=== PATIENT | male | born 1955 | race Caucasian/White ===

== ENCOUNTER 2023-05-27 06:21 | Observation (INO) ==
--- NOTE | 2023-05-17 10:49 | Anesthesiology Consultation ---
Date of Service May 17, 2023 Assessment & Plan (1) Encounter for pre-operative examination: Plan - will request most recent cardiology office notes from Dr. Ivory in addition to any available stress testing or carotid imaging from the past 6 years. - Per petrophysical engineer on 05/17/2023: No known infectious disease contacts, current infectious disease symptoms in past 10 days or COVID positive test result in the past 90 days. Chart Review Chart Review: Pending: Refer to Additional Notes / Consult section and Patient NOT seen in Pre Admission Testing History Surgery Operation Date: 05/27/23 08:15 Proposed Procedures p Robotic Assisted Laparoscopic Radical Retropubic Prostatectomy, Possible Open, Possible Pelvic Lymph Node Dissection - Vernon Soliz, Height/Weight Height: 5 ft 6 in Weight: 99.79 kg Allergies Allergy/AdvReac Type Severity Reaction Status Date / Time No Known Allergies Allergy Verified 05/17/23 08:32 Medications Home Medications Medication Instructions Recorded Confirmed Last Taken amlodipine 5 mg tablet 7.5 mg PO QAM 11/02/22 05/17/23 Unknown aspirin 81 mg tablet,delayed 81 mg PO QAM 11/02/22 05/17/23 Unknown release (Adult Aspirin Regimen) atorvastatin 80 mg tablet 80 mg PO HS 11/02/22 05/17/23 Unknown metoprolol tartrate 25 mg tablet 25 mg PO BID 11/02/22 05/17/23 Unknown Past Medical History Medical History (Updated 05/17/23 @ 10:48 by Azra Hernandez PA-C) CAD (coronary artery disease) s/p 2 stents 01/2022 Gout Heart attack 01/2022--had heart cath with 2 stents placed--was on plavix, taken off January 2023, continues with daily baby aspirin--follows with Dr. Ivory Heart failure EF 40% Hypertension Prostate cancer (02/08/23) diagnosed 01/2023--no treatment yet, scheduled for prostatectomy Past Family History Family History Mother Hypertension Other No family history of adverse response to anesthesia Past Surgical History Surgical History History of coronary artery stent placement 01/2022--@ [facility]--2 stents placed History of tooth extraction all teeth removed Social History Smoking Status: Never smoker Do You Dip or Chew Tobacco: No Hx Alcohol Use: Yes ("on the weekends") Alcohol type: beer alcohol intake frequency: a few times a week Hx Substance Use: No substance use type: does not use Testing Laboratory Results 05/14/2023 WBC: 7.2 H/H: 15/45 PLATELETS: 297 SODIUM: 139 POTASSIUM: 4.1 CHLORIDE: 109 CO2: 26 BUN: 19 CREATININE: 0.9 GLUCOSE: 107 Urine culture: no growth at 48 hours. Electrocardiogram Date: 05/14/23 Sinus bradycardia with 1st degree AV block, rate 58 bpm Minimal voltage criteria for LVH, consider normal variant Inferior PR, probably old with posterior extension Chest X-Ray Date: 05/14/23 No acute cardiopulmonary abnormality Echocardiogram Date: 01/23/22 EF 40% Grade I diastolic dysfunction Mild aortic valve regurgitation Enlarged ascending aorta Other Testing Abdomen pelvis CT 02/18/23 1. No evidence for metastatic disease within the abdomen or pelvis. 2. 1.8 x 1.4 cm enhancing lesion within the right anterior aspect of the prostate at the level of the mid gland which corresponds to a lesion on previous MRI. This likely reflects malignancy and could be correlated with biopsy results. This abuts the capsule. 3. Subtle stranding adjacent to the pancreas and mesentery. Acute pancreatitis is considered unlikely however correlation with serum lipase level is recommended
[~2023-05-27 06:21] MED LIST: LR 15ML/HR IV SCH; ceFAZolin 2000MG 2,000 MG/15 ML SYR IV SCH
[2023-05-27] MEDS ORDERED: ePHEDrine sulfate 50 MG/ML AMP IV PRN (06:40)
[2023-05-27] MEDS ORDERED: ONDANSETRON INJ 2 MG/ML 2 ML VIAL IV PRN ×2 (06:40→12:55)
[2023-05-27] MEDS ORDERED: HYDROmorphone INJ 2 MG/ML SYR/VIAL IV PRN (06:40)
[2023-05-27] MEDS ORDERED: PROMETHAZINE HCL 6.25 MG in SODIUM CHLORIDE 0.9% 50 ML IV PRN (06:40)
[2023-05-27] MEDS ORDERED: ATROPINE SULFATE 0.1 MG/ML 10ML SYR IV PRN (06:40)
--- NOTE | 2023-05-27 06:50 | History & Physical Bridge Note ---
Date of Service May 27, 2023 History & Physical Bridge Note I have examined the patient, reviewed the History & Physical and in the interval since the performance of the History & Physical I have noted the following changes of clinical significance: no changes noted 67-year old diagnosed with high risk prostate cancer (Balbir 4+4, PSA 9.71, cT1c) Risks and benefits discussed at length for procedure. These include bleeding, infection, injury to surrounding tissues or organs, and risks associated with anesthesia. Patient states understanding and agrees to proceed. Will sign consent and proceed. Plan on Robot Asst Laparoscopic Prostatectomy with possible pelvic lymph node d issection
[2023-05-27] MEDS ORDERED: PROPOFOL IV EMULSION 10 MG/ML 20 ML VIAL IV ONE (07:09)
[2023-05-27] MEDS ORDERED: LIDOCAINE 2% 2 ML VIAL/AMP(20MG/ML) INFIL ONE ×2 (07:09→07:10)
[2023-05-27] MEDS ORDERED: ONDANSETRON INJ 2 MG/ML 2 ML VIAL ONE (07:09)
[2023-05-27] MEDS ORDERED: DEXAMETHASONE SOD INJ 4 MG/ML VIAL ONE (07:09)
[2023-05-27] MEDS ORDERED: MIDAZOLAM HCL 1 MG/ML 2ML VIAL ONE (07:10)
[2023-05-27] MEDS ORDERED: fentaNYL citrate PF 100 MCG/2 ML VIAL ONE ×2 (07:10→09:04)
[2023-05-27] MEDS ORDERED: ROCURONIUM BROMIDE 10 MG/ML 5 ML VIAL IV ONE ×10 (07:10)
[2023-05-27] MEDS ORDERED: BUPIVACAINE 0.5 % 5 MG/1 ML MPF 30ML VIAL ONE (08:14)
[2023-05-27] MEDS ORDERED: ePHEDrine sulfate 50 MG/5 ML SYR ONE (09:11)
[2023-05-27] MEDS ORDERED: FLOSEAL HEMOSTATIC MATRIX 10ML TOP ONE (09:43)
[2023-05-27] MEDS ORDERED: SURGICEL ABSORB HEMOSTAT 2IN X 14IN TOP ONE (09:44)
[2023-05-27] MEDS ORDERED: SUGAMMADEX SODIUM 200 MG/2 ML VIAL IV ONE (10:34)
[2023-05-27] MEDS ORDERED: MoRPHine SULFATE 2 MG/ML CARP ONE (11:11)
--- NOTE | 2023-05-27 11:37 | Operative Report ---
PG Post Operative Report Pre & Post Diagnosis Operation Date: 05/27/23 08:15 Pre-Op Diagnosis: Prostate Cancer Post-Op Diagnosis: Prostate Cancer I identified the patient and participated in the time-out.: Yes Procedure Operation Date: 05/27/23 08:15 Actual Procedures p Robotic Assisted Laparoscopic Radical Retropubic Prostatectomy, Bilateral Pelvic Lymph Node Dissection(Not Applicable) - Vernon Soliz, Surgeon Vernon Soliz, II, DO Art Department Head Kate STEPHENS Estimated Blood Loss 50 Findings Consistent with Post-Op Diagnosis Mild adhesions of the sigmoid colon Specimens Prostate and Seminal Vesicle Left Pelvic Lymph Nodes Right Pelvic Lymph Nodes. Drains 18 Fr Silicon Morin catheter. Anesthesia Type General Complications none Disposition Disposition: Recovery Room Indications Patient with Prostate Cancer. Risk and benefits were discussed at length. Patient elected to undergo robotic assisted laparoscopic Radical Prostatectomy. Description of Procedure The patient was brought to the operative suite and placed under general endotracheal intubation anesthesia in the supine position. The patient was transferred to the dorsal lithotomy position. At this point, the patient prepped and draped in the usual sterile fashion and a timeout was completed. Preoperative antibiotics of Ancef 2 grams had been given. JOSE's and SCD's were placed on the patient's lower extremities. A catheter was placed using sterile technique. With the time out completed the patient was placed into Trendelenburg and the skin at the umbilicus was anesthetized. A small incision was made superior to the umbilicus. A Varess Needle was placed and confirmed to be in the abdominal cavity. Water drop test passed. The Abdominal cavity was insufflated to 15 mmHG. The camera port was then placed. A laparoscopic camera was placed into the port and the abdominal cavity inspected. No concerning features were noted. At this point, the skin was marked for port placement and 8mm working ports were placed. The skin was anesthetized down to fascia and an approx 1cm incision was made to place the 3 x 8mm ports. A 12mm and 5 mm pediatric physician assistant ports were also placed in similar fashion under direct visualization. The patient was transferred into steep Trendelenburg position and the legs lowered. The robot was positioned and docked. The camera was placed and all trocars were positioned under direct visualization. Tono STEPHENS was integral in port placement, camera utilization, and docking diane barrera. She remained in sterile attire and then proceeded to assist the remainder of the case. At this point, I transitioned to the robotic console. At this point, the sigmoid colon was mobilized superiorly and the pelvis assessed. Adhesions were freed to allow mobilization. The peritoneum in the midline was opened between rectum and bladder and the vas deferens and seminal vesicles exposed. These were dissected with blunt technique. The vas was clipped and cut and mobilized. Cautery was used to assist dissection avoiding the tissue posteriorly near the rectum. The tissues lateral to the seminal vesicles were clipped with a hemolock and all bleeding controlled. This was taken as inferior as possible from this position. The medial umbilical ligaments were then identified and the peritoneum directly lateral on the right followed by the left was opened. The tissues were bluntly dissected to free the bladder's lateral attachments. This was taken down to the pubic bone and exposed the endopelvic fascia bilaterally. The medial ligaments were cut and the bladder dropped. The tissues was dissected anterior to the prostate. The endopelvic fascia on each side was then opened and the lateral edges of the prostate dissected. The Dorsal venous complex of the prostate was dissected and assessed. A 2-0 PDS suture was used to ligate the vessels. A suspension stitch was used and clipped. Electrocautery was used to cut the anterior attachments, the puboprostatic ligaments, and venous tissues. The morin was manipulated to better visual the bladder neck and dissection was taken using electrocautery. The bladder neck was opened and dissected from the prostate. The UO were identifed and dissection taken in a direction to avoid each side. The vas stump and seminal vesicles were exposed and used to assist in traction to dissect. The prostatic pedicles were better exposed. The posterior prostate was dissected. An attempt was made to limit cautery and utilize cold dissection of the lateral posterior prostate to attempt preservation of the neurovascular bundle bilaterally. Hemolock clips were utilized to clip the prostatic pedicle bilaterally. The dissection was taken to the apex of the prostate. The anterior prostate was released and the urethra exposed. Cold cutting was used to open the anterior portion and expose the catheter. This was removed and the urethra incised. The prostate was further freed and grasped and removed from the field. The entire dissection bed was inspected.Hemostatic agent was placed in the region. No areas of injury or bleeding was noted. Care was taken to examine the perirectal tissues. A probe was placed and no injuries or other issues were observed. The bladder neck and urethra were then approximated with a running barbed suture starting at the 5 o'clock position and moving to the 12 o'clock on each side. This was tied at the anterior portion. A leak test was completed without any evidence of issues. The right and left pelvic lymph tissue was identified in relation to the iliac vessels. Distal dissection was taken to the Node of Artemas. Inferiorly the obtorator vessels and nerve were identified. Lymphatic tissue within the surround fat tissue was dissected. This packet of tissues were sent for pathologic analysis and lymph node assessment. This was done for each separate side. Hemostatic agent was placed on the exposed vessels. The entire dissection space was inspected one final time. No bleeding or injuries or areas of concern were noted. No tumor or other concerning features were noted. At this point, the robot was undocked and moved away from the patient. The patient was taken out of Trendelenberg. The port sites were all assessed laparoscopically. The endoscopic bag was moved into the midline port. The 12mm port site was closed with the Chase Olivia device. The other ports were assessed and no issues observed. The umbilical incision was opened further exposing fascia which was then opened in order to removed the prostate in the bag. The prostate was removed. A running PDS suture was used to close fascia. The skin at each site was closed with chris. The area was cleaned and bandages placed on each incision. The patient was cleaned and bandaged, aroused from anesthesia, and transferred to the pacu in stable condition having tolerated the procedure well with no complications. I was present and participated in all aspects of the procedure. Tono STEPHENS was critical in the portions as mentioned above. Will plan to observe postoperatively and monitor. Morin to be remain in place until followup. I attest to the content of the Intraoperative Record and any orders documented therein. Any exceptions are noted below.
[2023-05-27] MEDS: fentaNYL citrate PF 100 MCG/2 ML VIAL IV PRN ×3 (11:53→12:17)
[2023-05-27 12:19] LABS: Basophils # (auto) 0.03 K/uL (0.00-0.20); Basophils % (auto) 0.2 %; Eosinophils # (auto) 0.06 K/uL (0.00-0.50); Eosinophils % (auto) 0.5 %; Hematocrit (blood only) 41.4 % (42.0-52.0); Hemoglobin 13.7 g/dl (14.0-18.0); Immature Granulocytes # (auto) 0.04 K/uL (0.01-0.20); Immature Granulocytes % (auto) 0.3 %; Lymphocytes # (auto) 1.57 K/uL (1.20-3.40); Mean Corpuscular Hemoglobin 30.9 pg (25.0-34.0); Mean Corpuscular Hgb Conc 33.1 g/dL (32.0-36.0); Mean Corpuscular Volume 93.5 fL (80.0-100.0); Mean Platelet Volume 8.8 fL (9.4-12.4); Monocytes # (auto) 0.34 K/uL (0.11-0.59); Monocytes % (auto) 2.8 %; Neutrophils # (auto) 10.07 K/uL (1.40-6.50); Neutrophils % (auto) 83.2 %; Platelet Count 276 K/uL (130-400); RDW Coefficient of Variation 12.1 % (11.5-14.5); RDW Standard Deviation 41.5 fL (36.4-46.3); Red Blood Count 4.43 M/uL (4.70-6.10); White Blood Count 12.11 K/ul (4.8-10.8)
[2023-05-27 12:32] LABS: BUN Creatinine Ratio 20.4 (10-20); Calcium 8.8 mg/dl (8.6-10.3); Est GFR (African American) 86.7 ml/min; Est GFR (Non-African American) 74.8 ml/min; Potassium 3.7 mmol/L (3.5-5.1)
[2023-05-27] MEDS ORDERED: ACETAMINOPHEN 325 MG TAB PO PRN (12:55)
[2023-05-27] MEDS ORDERED: MoRPHine SULFATE 4 MG/ML 1 ML CARP\\VIAL IV PRN (12:55)
[2023-05-27] MEDS ORDERED: MoRPHine SULFATE 2 MG/ML CARP IV PRN (12:55)
[2023-05-27] MEDS ORDERED: oxyCODONE HCL IR 5 MG TAB (IMMEDIATE RELEASE) PO PRN ×2 (12:55)
--- NOTE | 2023-05-27 14:32 | Anesthesiology Progress Note ---
Date of Service May 27, 2023 Anesthesia Post Procedure Vital Signs Vital Signs: Temp Pulse Pulse Resp BP BP Pulse Ox 05/27/23 14:03 36.3 C L 74 16 128/75 95 05/27/23 13:35 36.3 C L 76 16 120/69 96 05/27/23 13:00 36.4 C L 76 16 135/75 93 05/27/23 12:45 81 19 136/80 97 05/27/23 12:30 36.3 C L 72 14 137/77 97 05/27/23 12:20 78 15 137/81 95 05/27/23 12:10 77 18 132/84 96 05/27/23 12:00 76 21 161/88 H 98 05/27/23 11:50 78 18 147/102 H 100 05/27/23 11:42 36.2 C L 77 19 166/95 H 100 05/27/23 07:02 36.4 C L 67 20 169/84 H 97 O2 Del Method O2 Flow Rate 05/27/23 14:03 Room Air 05/27/23 13:35 Room Air 05/27/23 13:00 Room Air 05/27/23 12:45 Room Air 05/27/23 12:30 Nasal Cannula 2 05/27/23 12:20 Nasal Cannula 2 05/27/23 12:10 Nasal Cannula 2 05/27/23 12:00 Nasal Cannula 4 05/27/23 11:50 Oxymask 14 05/27/23 11:42 Oxymask 14 05/27/23 07:02 Room Air Pain Intensity Groin: Pain Intensity: 3 Transfer of Care Handoff Completed per policy Notes Mental Status: alert / awake / arousable and participated in evaluation Patient Amnestic to Procedure: Yes Nausea / Vomiting: adequately controlled Pain: adequately controlled Airway Patency, RR, SpO2: stable & adequate BP & HR: stable & adequate Hydration State: stable & adequate Anesthetic Complications: no major complications apparent and Pt Satisfied with anesthetic care
[2023-05-27] MEDS: LACTATED RINGER'S 1,000 ML IV SCH ×2 (14:39→23:02)
[2023-05-27] MEDS: ceFAZolin 2000MG 2,000 MG/15 ML SYR IV SCH ×2 (16:16→23:01)
[2023-05-27] MEDS: HEPARIN SOD 5,000 UNIT/0.5 ML VIAL SQ SCH (19:55)
[2023-05-27] MEDS: METOPROLOL TARTRATE 25 MG TAB PO SCH (19:55)
[2023-05-27] MEDS: DOCUSATE SODIUM 100 MG CAP PO SCH (19:56)
[2023-05-27] MEDS ORDERED: ATORVASTATIN 40 MG TAB PO SCH (21:00)
[2023-05-28 06:23] LABS: Basophils # (auto) 0.01 K/uL (0.00-0.20); Basophils % (auto) 0.1 %; Eosinophils # (auto) 0.01 K/uL (0.00-0.50); Eosinophils % (auto) 0.1 %; Hematocrit (blood only) 38.3 % (42.0-52.0); Hemoglobin 12.5 g/dl (14.0-18.0); Immature Granulocytes # (auto) 0.03 K/uL (0.01-0.20); Immature Granulocytes % (auto) 0.3 %; Lymphocytes # (auto) 2.02 K/uL (1.20-3.40); Lymphocytes % (auto) 17.8 %; Mean Corpuscular Hemoglobin 30.9 pg (25.0-34.0); Mean Corpuscular Hgb Conc 32.6 g/dL (32.0-36.0); Mean Corpuscular Volume 94.8 fL (80.0-100.0); Mean Platelet Volume 8.9 fL (9.4-12.4); Monocytes # (auto) 1.54 K/uL (0.11-0.59); Monocytes % (auto) 13.6 %; Neutrophils # (auto) 7.73 K/uL (1.40-6.50); Neutrophils % (auto) 68.1 %; Platelet Count 297 K/uL (130-400); RDW Coefficient of Variation 12.4 % (11.5-14.5); RDW Standard Deviation 43.4 fL (36.4-46.3); Red Blood Count 4.04 M/uL (4.70-6.10); White Blood Count 11.34 K/ul (4.8-10.8)
[2023-05-28 06:52] LABS: BUN Creatinine Ratio 14.9 (10-20); Calcium 8.9 mg/dl (8.6-10.3); Est GFR (African American) 103.5 ml/min; Est GFR (Non-African American) 89.3 ml/min; Potassium 4.3 mmol/L (3.5-5.1)
--- NOTE | 2023-05-28 07:49 | Urology Progress Note ---
Date of Service May 28, 2023 Assessment & Plan (1) Prostate cancer: Plan POD #1 s/p Robotic Assisted Laparoscopic Radical Retropubic Prostatectomy, Bilateral Pelvic Lymph Node Dissection with Dr. Soliz. - Feeling well, progressing as expected. - Afebrile and hemodynamically stable. - Labs reviewed - WBC 11.34, Hemoglobin 12.5, Creatinine 0.87. - Ruiz draining clear yellow urine. - Tolerating clear liquid diet. - Minimal pain. - Incisions appropriate. Plan- - Encourage ambulation. - Discontinue IV fluids. - Advance diet as tolerated. - Maintain Ruiz catheter. - Continue supportive care and pain management as needed. - Anticipate discharge home later today or tomorrow pending patient progression. Admission and Anticipated Discharge Date Admission Date: May 27, 2023 Subjective Pt examined at bedside this AM. Awake, resting in bed on arrival. No acute distress. Minimal pain, manageable with p.o. medication. Tolerating clear liquid diet. He does feel a little bloated this morning. No nausea or vomiting. +Belching. No flatus. Denies fevers or chills. Ruiz intact, draining clear yellow urine. Incisions appropriate. Ambulated yesterday evening without issue. Review of Systems Constitutional: as per Subjective / HPI Gastrointestinal: as per Subjective / HPI Genitourinary: + as per Subjective / HPI Physical Exam Constitutional: well developed and well nourished; no acute distress Respiratory: normal respiratory effort; no respiratory distress and no labored breathing Gastrointestinal (Abdomen): Soft, mildly distended. Incisions appropriate, chris intact. Skin: No visible rashes or lesions to exposed skin areas Neurologic: moves all extremities and awake Psychiatric: A+Ox3, euthymic affect Genitourinary: Ruiz draining clear yellow urine Results & Data Vital Signs (Past 12 Hours) Vital Signs Temp Pulse Resp BP Pulse Ox O2 Del Method 05/28/23 07:24 36.7 C 73 16 150/81 H 97 Room Air 05/28/23 02:47 36.6 C 69 16 146/70 H 95 Room Air 05/27/23 22:58 36.7 C 74 16 132/74 95 Room Air PG Care Time/CCT Total # of Minutes Spent Total Time Spent with Patient: Total time spent is greater than 50% in coordination of care (as documented) at patient's floor/unit and/or counseling patient: Coding Level of Care Code None Diagnoses Prostate cancer C61
[2023-05-28] MEDS: DOCUSATE SODIUM 100 MG CAP PO SCH (08:16)
[2023-05-28] MEDS: HEPARIN SOD 5,000 UNIT/0.5 ML VIAL SQ SCH (08:16)
[2023-05-28] MEDS: METOPROLOL TARTRATE 25 MG TAB PO SCH (08:16)
[2023-05-28] MEDS ORDERED: amLODIPine BESYLATE 5 MG TAB PO SCH (09:00)
--- NOTE | 2023-05-28 13:45 | Discharge Summary ---
Date of Service May 28, 2023 Admission HPI Per Admitting Provider 67-year-old male with prostate cancer admitted for robotic prostatectomy Admission Exam Per Admitting Provider General: Alert and oriented, no acute distress HEENT: Normocephalic, mucous membranes moist Pulmonary: Nonlabored respirations Abdomen: Nondistended Extremities: Moves all 4 spontaneously Neuro: No gross deficits Skin: Warm, dry, no rashes noted Principal Diagnosis Prostate cancer Discharge Exam Constitutional well developed and well nourished; no acute distress Respiratory normal respiratory effort; no respiratory distress and no labored breathing Gastrointestinal (Abdomen) Incisions appropriate, chris intact Neurologic moves all extremities and awake Psychiatric A+Ox3, euthymic affect Genitourinary Ruiz draining clear yellow urine Discharge Data Allergies Allergy/AdvReac Type Severity Reaction Status Date / Time No Known Allergies Allergy Verified 05/27/23 07:00 Procedures Performed Operation Date: 05/27/23 08:15 Actual Procedures p Robotic Assisted Laparoscopic Radical Retropubic Prostatectomy, Bilateral Pelvic Lymph Node Dissection(Not Applicable) - Vernon Soliz, DO Hospital Course (1) Prostate cancer: Plan 67-year-old male admitted status post robotic prostatectomy with Dr. Soliz. Patient tolerated procedure well. No acute issues postoperatively. He remained afebrile and hemodynamically stable. Labs were appropriate. Ruiz catheter draining clear yellow urine with adequate output. Tolerated diet. Reported minimal pain. Incisions appropriate. Ambulated without issue. Patient was discharged home on postop day #1 with Ru[address] catheter in place. He was in stable condition at time of discharge. Discharge instructions were reviewed, all questions were answered. Appropriate postoperative follow-up appointments were in place. Total Time Total Time Spent Total Time Spent (In Minutes): 15 Discharge Plan Discharge Items Patient Disposition: Home - Self-Care Reason For Visit: Prostate Cancer Discharge Diagnosis: Prostate cancer Activity: Per Instructions section Lifting: No more than 10 pounds Bathing Comment: Okay to shower. No tub baths or soaks. Sexual Activity: Wait until after follow-up appointment Exercise/Sports: Wait until after follow-up appointment Driving/Machine Use: Do not drive if taking prescription pain medication. Non-emergency contact: Surgeon and Urologist Call non-emergency contact if: you have any medication questions, your pain is not controlled, your pain is unusual for you, you have a fever, your wound has increased redness, your wound has increased drainage and your wound pain has increased Follow-up/Referrals: Vernon Soliz DO [Physician] - 06/09/23 8:30 am Zach James PA-C [Primary Care Provider] - Urology,Nurse [FAKE FOR SCHEDULES] - 06/03/23 9:00 am Diet: Regular Addtl Attending Provider Instructions: Please take all medications as prescribed and keep all follow-ups as scheduled. Please call our office at [phone] with any questions, concerns or need to reschedule appointments for any reason. We are happy to assist you We have sent an antibiotic to your pharmacy of choice. Please begin antibiotic as prescribed the day BEFORE your scheduled voiding trial at [facility] [place] [facility]. Please continue antibiotic every 12 hours through the day AFTER your voiding trial. Activity: We recommend having someone with you for the first few days after surgery to help care for you. For the first 2 weeks after surgery, we would like you to get up and walk around your house. However, we recommend limit physical activity that would increase your heart rate. This will allow your body to rest and heal. Take naps if you feel tired. Don't lift anything heavier than 10 pounds, mow the law or ride a bicycle until your follow-up appointment. Please avoid long car rides. Home Care: Unless directed otherwise, drink 6 to 8 glasses of water a day (enough to keep your urine light colored). This will also help keep a healthy flow of urine. We recommend using a stool softener for the first two weeks to avoid constipation. Ruiz Catheter or Suprapubic Catheter care: Keep the catheter well secured with either a leg back or leg strap with large bag. Empty your bag when it's about half full. You may notice some blood in the bag. This is normal after surgery and while the catheter is in place. Use mild soap (such as Dove or Dial) and water to wash the catheter and the head of your penis daily, or more frequently if needed. Return to your normal diet, we encourage good protein intake to promote healing. You may shower as normal. Please avoid tub baths or soaking until catheter removed and incisions well healed. Wearing sweat pants while you have the catheter is recommended, they will be more comfortable. Follow-up Your follow up appointments for having your catheter removed, and follow up with your physician should already be scheduled. If you have any questions regarding this, please contact our office. Your final pathology report will be discussed at your physician follow-up appointment. Call [facility] [place] [facility] at [phone] right away if you have any of the following: Chest pain or trouble breathing (call 911 or go to the hospital) Fever of 101F or higher, uncontrolled vomiting Heavy bleeding, clots, or bright red blood from the catheter Catheter that falls out or stops draining Foul-smelling discharge from your catheter Redness, swelling, warmth, or increased pain at your incision site Drainage, pus, or bleeding from your incision Pending Studies at Discharge: Yes (pathology) Stand-Alone Forms: My [facility], Pain - Opioid Pain Management, Smoking Cessation Medications and DC Order Prescriptions: New ciprofloxacin HCl 500 mg tablet 500 mg PO BID 3 Days Qty: 6 0RF Rx Instructions: Start 1 day prior to catheter removal oxycodone-acetaminophen [Percocet] 5-325 mg tablet 1 tab PO Q8H PRN (Reason: pain) Qty: 7 0RF docusate sodium [Colace] 100 mg capsule 100 mg PO BID Qty: 30 0RF Rx Instructions: Take twice daily for 2 weeks, then as needed thereafter Continued amlodipine 5 mg tablet 7.5 mg PO QAM atorvastatin 80 mg tablet 80 mg PO HS metoprolol tartrate 25 mg tablet 25 mg PO BID aspirin [Adult Aspirin Regimen] 81 mg tablet,delayed release (DR/EC) 81 mg PO QAM Discharge Orders: Discharge Order (Routine); Ordered 05/28/23 Ordered By: Kate Durán/Other Patient Handouts: DVT Post Op Prevention, Radical Prostatectomy Dc Admission Data Admit Date/Time: 05/27/23 11:48 Attending Provider: Vernon Soliz Admit Provider: Vernon Soliz Primary Care Provider: Zach James Other Interventions: Discharge Summary Assessment (RN) Last Done: 05/28/23 13:53 Coding Level of Care Code 15536 IN/OBS DISCH 30 MIN/LESS Diagnoses Prostate cancer C61
== END 2023-05-28 14:25 | disposition home or self-care (01) ==
LOC: ASU 06:21 → INTOOBSV 11:48 → 3E 11:48